=== PATIENT | male | born 1970 | race Caucasian/White ===

== ENCOUNTER 2017-09-28 09:30 | Emergency (ER) | payer OTHER ==
[~2017-09-28] VITALS: Ht 167.6 cm; Wt 70.3 kg
[~2017-09-28 09:30] MED LIST: AMBIEN 10 MG TA10 MG PO; ATENOLOL 25 MG25 M1 PO; FLEXERIL PO; HYDRALAZINE 2525 M1 PO; HYDROCODONE-AP1 EAC6 PO; INDOMETHACIN 2525 MG PO; INDOMETHACIN 5050 M1 PO; NAPROSYN500 MG PO; NORCO 5-325 TA1 EACH PO; PRILOSEC 20 MG20 MG PO; TIZANIDINE HCL4 MG PO; WELLBUTRIN 100100 MG PO
[2017-09-28 09:35] VITALS: BP 133/93
[2017-09-28] MEDS ORDERED: INDOMETHACIN 2525 MG PO ×2 (09:59→10:00)
[2017-09-28] MEDS ORDERED: HYDROCODONE-AP1 EAC6 PO ×2 (09:59→10:00)
== END 2017-09-28 10:25 | disposition home or self-care (01) ==
LOC: ER 09:30
DX: M10.9 Gout, unspecified (principal); F32.9 Major depressive disorder, single episode, unspecified; F41.9 Anxiety disorder, unspecified; Z88.6 Allergy status to analgesic agent

== ENCOUNTER 2017-10-11 14:59 | Emergency (ER) | payer OTHER ==
[~2017-10-11] VITALS: Ht 167.6 cm; Wt 70.3 kg
[2017-10-11] MEDS ORDERED: INDOMETHACIN 2525 MG PO (16:57)
[2017-10-11] MEDS ORDERED: COLCHICINE0.6 M1 PO (16:57)
[2017-10-11] MEDS ORDERED: PREDNISONE 20 M20 MG PO (16:57)
[2017-10-11] MEDS ORDERED: HYDROCODONE-AP1 EAC6 PO (17:00)
[2017-10-11 17:22] VITALS: BP 127/96
== END 2017-10-11 17:23 | disposition home or self-care (01) ==
LOC: ER 14:59
DX: M25.462 Effusion, left knee (principal)

== ENCOUNTER 2018-03-22 04:49 | Inpatient (IN) | payer OTHER ==
[2018-03-22] VITALS (8 sets, daily range): BP systolic 95–140; BP diastolic 61–87
[~2018-03-22] VITALS: Ht 167.6 cm; Wt 67.1 kg
--- NOTE | ~2018-03-22 | EKG ---
[address] [employer] [place] [address] ELECTROCARDIOGRAM REPORT Name: ODALISEVELYN Room #: 356-P ADM IN M.R.#: [id number] Admission: 03/22/18 Attend Phys: Marcelle Daniels Discharge: Date of : 68 Report #: [id number] THIS REPORT FOR: //name// [facility] ED Test Date: 2018-03-22 Test Time: 04:56:24 Pat Name: EVELYN JACOBO Department: Room: [facility] Gender: M [employer] Specialist: MIHAELA : 1970 Requested By: Chin Gonzales Order Number: [id number] MD: Abelino Verde Measurements Intervals [place] Rate: 70 P: 77 TN: 158 QRS: 22 QRSD: 109 T: 27 QT: 401 QTc: 433 Interpretive Statements Sinus rhythm No significant abnormality No previous ECG available for comparison Electronically Signed On 03-22-2018 13:05:42 CDT by Abelino Verde [email or web address] <ELECTRONICALLY SIGNED> By: Abelino Verde MD, [facility] 03/22/18 [id number] Abelino Verde MD, FACC /EPI
[~2018-03-22 04:49] MED LIST changes: +COLCHICINE0.6 M1 PO; +PREDNISONE 20 M20 MG PO
[2018-03-22 05:22] LABS: HEMATOCRIT 41.2 % (42.0-52.0); HEMOGLOBIN 14.1 gm/dL (14.0-18.0); MCH 29.8 pg (26.0-34.0); MCHC 34.2 g/dL (28.0-37.0); MCV 87.2 fL (80.0-100.0); RBC 4.73 mil/uL (4.50-6.00); WBC 12.2 thou/uL (4.0-11.0)
[2018-03-22] MEDS ORDERED: CLONAZEPAM 0.50.5 M1 PO (05:23)
[2018-03-22] MEDS ORDERED: METHADOSE10 MG PO (05:23)
[2018-03-22 05:32] LABS: ANION GAP 9 mmol/L (7-16); BUN 23 mg/dL (7-18); CHLORIDE 102 mmol/L (98-107); CO2 27 mmol/L (21-32); CREATININE 1.1 mg/dL (0.7-1.3); GLUCOSE 112 mg/dL (74-106); POTASSIUM 4.1 mmol/L (3.5-5.1); SODIUM 138 mmol/L (136-145)
[2018-03-22 05:40] LABS: ALBUMIN 3.2 g/dL (3.4-5.0); SGOT 24 U/L (15-37); SGPT 25 U/L (30-65); TOTAL BILIRUBIN 0.4 mg/dL (<0.1-1.0); TOTAL PROTEIN 6.1 g/dL (6.4-8.2); TROPONIN-I <0.06 ng/mL (<0.06)
[2018-03-22 10:09] LABS: CHOLESTEROL 167 mg/dL (<200); HDL CHOLESTEROL 49 mg/dL (>40); LDL CHOLESTEROL 84 mg/dL (<100); TC:HDL 3.4 Ratio (Not establshd); TRIGLYCERIDE 171 mg/dL (<150); VLDL 34 mg/dL (<40)
[2018-03-22 10:13] LABS: SERUM ASSESSMENT Clear
[2018-03-23 04:55] VITALS: BP 94/61
[2018-03-23 06:43] LABS: HEMATOCRIT 37.6 % (42.0-52.0); MCH 30.3 pg (26.0-34.0); MCHC 34.5 g/dL (28.0-37.0); RBC 4.27 mil/uL (4.50-6.00); RDW 14.1 % (10.5-14.5); WBC 6.9 thou/uL (4.0-11.0)
[2018-03-23 07:09] LABS: ANION GAP 5 mmol/L (7-16); BUN 18 mg/dL (7-18); CALCIUM 8.4 mg/dL (8.5-10.1); CHLORIDE 104 mmol/L (98-107); CO2 29 mmol/L (21-32); CREATININE 0.9 mg/dL (0.7-1.3); GLUCOSE 104 mg/dL (74-106); MAGNESIUM 1.8 mg/dL (1.8-2.4); POTASSIUM 4.1 mmol/L (3.5-5.1); SODIUM 138 mmol/L (136-145); TROPONIN-I <0.06 ng/mL (<0.06)
[2018-03-23 08:10] VITALS: BP 112/67
[2018-03-23 11:10] VITALS: BP 103/69
[2018-03-23 15:46] VITALS: BP 108/69
[2018-03-23] MEDS ORDERED: NORCO 5-325 TA1 EACH PO (17:29)
[2018-03-23 17:39] VITALS: BP 108/69
[2018-03-23] MEDS ORDERED: NORCO 7.5-3251 EACH PO (17:48)
== END 2018-03-23 18:01 | disposition home or self-care (01) | DRG 563 ==
LOC: ER 04:49 → EROBS 05:59 → 3W 05:59
PROVIDERS: Emergency Medicine; Hospitalist; Internal Medicine
DX: S43.422A Sprain of left rotator cuff capsule, initial encounter (principal); M10.9 Gout, unspecified; F41.9 Anxiety disorder, unspecified; F32.9 Major depressive disorder, single episode, unspecified; F43.10 Post-traumatic stress disorder, unspecified; G89.29 Other chronic pain; X58.XXXA Exposure to other specified factors, initial encounter; Y93.89 Activity, other specified; Y92.89 Other specified places as the place of occurrence of the external cause; Y99.8 Other external cause status; Z90.49 Acquired absence of other specified parts of digestive tract; Z79.899 Other long term (current) drug therapy; Z88.8 Allergy status to other drugs, medicaments and biological substances
CPT/HCPCS: 10779